=== PATIENT | male | born 1985 | race Caucasian/White ===

== ENCOUNTER 2019-01-24 21:52 | Emergency (ER) | payer SELFPAY ==
[2019-01-24] MEDS ORDERED: NORMAL SALINE 1000 ML 1,000 ML IV ONE (22:27)
[2019-01-24] MEDS ORDERED: LORAZEPAM INJ 2 MG/1 ML VIAL IV ONE ×2 (22:27→23:14)
[2019-01-24 23:44] LABS: ABSOLUTE LYMPHOCYTES (AUTO) 0.9 10^3/uL (0.5-4.7); ABSOLUTE MONOCYTES (AUTO) 1.2 10^3/uL (0.1-1.4); ABSOLUTE NEUT (AUTO) 12.6 10^3/uL (1.7-8.2); BASOPHILS % (AUTO) 0.3 % (0-2); EOSINOPHILS % (AUTO) 0.2 % (0-6); HEMATOCRIT 38.1 % (37.9-51.0); HEMOGLOBIN 12.7 g/dL (13.5-17.0); LYMPHOCYTES % (AUTO) 6.1 % (13-45); MEAN CORPUSCULAR HEMOGLOBIN 27.1 pg (27.0-33.4); MEAN CORPUSCULAR HGB CONC 33.2 g/dL (32.0-36.0); MEAN CORPUSCULAR VOLUME 82 fl (80-97); MONOCYTES % (AUTO) 8.3 % (3-13); PLATELET COUNT 255 10^3/uL (150-450); RED BLOOD COUNT 4.67 10^6/uL (4.35-5.55); RED CELL DISTRIBUTION WIDTH 14.4 % (11.5-14.0); SEGMENTED NEUTROPHILS % (AUTO) 85.1 % (42-78); TOTAL CELLS COUNTED % (AUTO) 100 %; WHITE BLOOD COUNT 14.8 10^3/uL (4.0-10.5)
[2019-01-25 00:01] LABS: BLOOD UREA NITROGEN 19 mg/dL (7-20); CALCIUM 8.8 mg/dL (8.4-10.2); CARBON DIOXIDE 25 mmol/L (22-30); CHLORIDE 102 mmol/L (98-107); GLUCOSE 91 mg/dL (75-110); POTASSIUM 3.7 mmol/L (3.6-5.0); SODIUM 138.2 mmol/L (137-145)
[2019-01-25 00:02] LABS: ALANINE AMINOTRANSFERASE 78 U/L (21-72); ALBUMIN 4.5 g/dL (3.5-5.0); ALKALINE PHOSPHATASE 86 U/L (38-126); ANION GAP 11 (5-19); ASPARTATE AMINO TRANSFERASE 50 U/L (17-59); BILIRUBIN,DIRECT 0.3 mg/dL (0.0-0.4); BILIRUBIN,TOTAL 1.1 mg/dL (0.2-1.3); TOTAL PROTEIN 7.7 g/dL (6.3-8.2)
[2019-01-25] MEDS ORDERED: RINGERS SOLUTION,LACTATED 1,000 ML IV ONE (05:24)
--- NOTE | 2019-01-25 05:33 | ER Document Report ---
ED General - General Chief Complaint: Drug Abuse Stated Complaint: PSYCH Time Seen by Provider: 01/24/19 22:14 Notes: Patient is a 34-year-old male who presents because of acting abnormal after doing a large amount of heroin and methamphetamines. Patient says that he is relapsed. He says he was clean for approximately 2 weeks and then relapsed today. He comes and thrashing about and unable to stay still and very fidgety. He denies depression. Denies suicidal ideations. He denies wanting to hurt himself or anybody else. TRAVEL OUTSIDE OF THE [place] IN LAST 30 DAYS: No - Related Data Allergies/Adverse Reactions: amoxicillin [Amoxicillin] Allergy (Severe, Verified 04/04/16 09:00) hives, n and v Penicillins Allergy (Verified 04/04/16 09:00) hives, n and v Past Medical History - Social History Smoking Status: Current Some Day Smoker Drug Abuse: Heroin, Marijuana, Methamphetamine, Prescription drugs Family History: Reviewed & Not Pertinent Patient has suicidal ideation: No Patient has homicidal ideation: No - Past Medical History Cardiac Medical History: Denies: Hx Coronary Artery Disease, Hx Heart Attack, Hx Hypertension Pulmonary Medical History: Denies: Hx Asthma, Hx Bronchitis, Hx COPD, Hx Pneumonia Neurological Medical History: Denies: Hx Cerebrovascular Accident, Hx Seizures Renal/ Medical History: Denies: Hx Peritoneal Dialysis Musculoskeletal Medical History: Denies Hx Arthritis, Reports Hx Musculoskeletal Trauma Traumatic Medical History: Reports: Hx Fractures Past Surgical History: Reports: Hx Orthopedic Surgery - Immunizations Immunizations up to date: No Hx Diphtheria, Pertussis, Tetanus Vaccination: Yes - -16- Review of Systems - Review of Systems Notes: My Normal Review Basic REVIEW OF SYSTEMS: CONSTITUTIONAL : Denies fever, chills, or sweats. Denies recent illness. EENT: Denies eye, ear, throat, or mouth pain or symptoms. Denies nasal or sinus congestion. CARDIOVASCULAR: Denies chest pain. RESPIRATORY: Denies cough, cold, or chest congestion. Denies shortness of breath, difficulty breathing, or wheezing. GASTROINTESTINAL: Denies abdominal pain. Denies nausea, vomiting, or diarrhea. MUSCULOSKELETAL: Denies neck or back pain or joint pain or swelling. SKIN: Denies rash or skin lesions. NEUROLOGICAL: Denies altered mental status or loss of consciousness. Denies headache. Unable to stay still. Constantly moving extremities. denies focal weakness. Denies problems with gait or speech. Denies sensory or motor loss. PSYCHIATRIC: Denies anxiety or stress or depression. ALL OTHER SYSTEMS REVIEWED AND NEGATIVE. Physical Exam - Vital signs Vitals: Temp Pulse Resp BP Pulse Ox 98.2 F 106 H 20 124/61 95 01/24/19 21:55 01/24/19 21:55 01/24/19 21:55 01/24/19 21:55 01/24/19 21:55 - Notes Notes: General Appearance: She is awake alert and cooperative. He is very fidgety mov ing around in the bed. He is having a difficult time staying still. He denies being in pain. Vitals: reviewed, See vital signs table. Head: no swelling or tenderness to the head Eyes: PERRL, EOMI, Conjuctiva clear Mouth: No decreasd moisture Neck: Supple, no neck tenderness, No thyromegaly Lungs: No wheezing, No rales, No rhonci, No accessory muscle use, good air exchange bilaterally. Heart: Normal rate, Regular rythm, No murmur, no rub Abdomen: Normal BS, soft, No rigidity, No abdominal tenderness, No guarding, no rebound, Extremities: strength 5/5 in all extremities, good pulses in all extremities, no swelling or tenderness in the extremities, no edema. Skin: warm, dry, appropriate color, no rash Neuro: speech clear, oriented x 3, normal affect, responds appropriately to questions. Cranial nerves II through XII are intact. Distal sensation intact. Patient is able to control his movements when he does focus on doing a specific task. Course - Re-evaluation Re-evalutation: 01/25/19 05:29 Reevaluation patient is in the room resting comfortably laying in the bed and sleeping. All signs remained stable. He is no longer thrashing about looks well. Avoid a second liter of fluids being that his renal function is little bit off. Avoid a CPK to make sure that he is not in rhabdo. 01/25/19 07:03 Is awake and alert and answers questions appropriately. He continues to deny any suicidal thoughts. He says he would like to speak with mental health about substance abuse and resources to help with substance abuse. I put a consult to them. I did inform patient that he did have mild acute kidney injury and that psych related to meth binge and dehydration. I have given 2 L IV fluids. Informed him that he needs to for drug use. I encouraged him to return to ER immediately if he has any depression, thoughts of suicide, uses drugs again, feels unwell, has decreased urination, or for any further concerns. I encouraged him to follow-up with resources I will be given to him by mental health. Patient agrees with plan will be discharged home after mental health evaluation. Dictation of this chart was performed using voice recognition software; therefore, there may be some unintended grammatical errors. - Vital Signs Vital signs: Temp Pulse Resp BP Pulse Ox 97.8 F 57 L 15 99/54 L 100 01/25/19 05:00 01/25/19 05:00 01/25/19 05:00 01/25/19 05:00 01/25/19 05:00 - Laboratory Result Diagrams: 01/24/19 23:35 01/24/19 23:35 Laboratory results interpreted by me: 01/24/19 01/24/19 01/24/19 23:35 23:35 23:35 WBC 14.8 H Hgb 12.7 L RDW 14.4 H Seg Neutrophils % 85.1 H Lymphocytes % 6.1 L Absolute Neutrophils 12.6 H Creatinine 2.07 H Est GFR ( Amer) 44 L Est GFR (Non-Af Amer) 37 L ALT 78 H Creatine Kinase 376 H - EKG Interpretation by Me Additional EKG results interpreted by me: 01/25/19 07:06 EKG is reviewed and interpreted by me. EKG shows sinus tachycardia with a rate of [address] segment elevation or depression. No ischemic T wave inversi ons. VT interval, QRS duration, QT intervals are within normal range. Old EKG for comparison is from October 22, 2018. Discharge - Discharge Clinical Impression: Substance abuse, Acute kidney injury Condition: Good Disposition: HOME, SELF-CARE Additional Instructions: Your blood work did not show any concerning findings other than you have a little bit decrease in your kidney function. This is usually reversible. I gave you 2 L of fluids to the IV which will usually help correct this. If you continue to use drugs you will likely continue to hurt and damage your kidneys. It is very important that you avoid drugs including methamphetamine, heroin, or any illegal street drugs. Continued use of these would likely lead to or permanent disability. Please follow-up with resources that were given to you by the mental health customs manager. Please have a low threshold to return to the ER if you relapse and use drugs again and feeling well, if you have depression, any thoughts of suicide, or if you have any concerns.
[2019-01-25 08:38] VITALS: BP 108/60
--- NOTE | 2019-01-28 13:02 | PSYCHOLOGICAL NOTE ---
Psych Note - Psych Note Date seen by psych provider: 01/25/19 Time seen by psych provider: 07:30 Psych Note: Reason for Consult: Detox Patient is a 34-year-old male who presents because of acting abnormal after doing a large amount of heroin and methamphetamines. Patient says that he is relapsed. Upon initial presentation to [facility] ED the patient was unable to sit still and unable to carry on organized linear conversation. Patient is currently alert and orientated to person, place, time and circumstance. Mood is euthymic with congruent affect. Patient denies suicidal homicidal ideation. No psychomotor agitation is noted. Delusions are absent behaviors congruent with an intact reality based presentation I organized and linear thought process. Eye contact was well-maintained. Conversational speech is within normal rate, tone and prosody. Intellectual abilities appear to be within the average range. Attention and concentration are currently good. Insight, judgment, impulse control are fair. Polysubstance abuse No medication augmentations at this time Impression/plan: Patient is cleared from acute psychiatric services. Patient is no longer under the influence. He is able to engage in an organized, linear and logical conversations. He denies any concerns with depression or thoughts of wanting to harm himself or others. He declined assistance in detox, reporting he has all the information and does not need addition assistance. Patient's mood is euthymic with congruent affect. Patient was provided local resource list of area providers including detox facilities and mobile crisis contact information in case he changes his mind. Dr. Rao was consulted and care management of this patient; attending physicians in agreement with recommendations and disposition.
== END 2019-01-25 08:38 | disposition home or self-care (01) ==
LOC: ER 21:52
DX: F15.10 Other stimulant abuse, uncomplicated (principal); F11.10 Opioid abuse, uncomplicated; F12.10 Cannabis abuse, uncomplicated; N17.9 Acute kidney failure, unspecified; Z88.1 Allergy status to other antibiotic agents; Z88.0 Allergy status to penicillin; F17.200 Nicotine dependence, unspecified, uncomplicated
CPT/HCPCS: 99284; 36415; 82962; 82550; 85025; 80053; J2060; J7030; J7120

== ENCOUNTER 2019-08-04 12:03 | Inpatient (IN) | payer SELFPAY ==
[2019-08-04] MEDS ORDERED: NORMAL SALINE 1000 ML 1,000 ML IV ONE (12:45)
[2019-08-04 13:46] LABS: HEMATOCRIT 41.2 % (37.9-51.0); HEMOGLOBIN 13.6 g/dL (13.5-17.0); MEAN CORPUSCULAR HEMOGLOBIN 27.8 pg (27.0-33.4); MEAN CORPUSCULAR HGB CONC 33.1 g/dL (32.0-36.0); MEAN CORPUSCULAR VOLUME 84 fl (80-97); PLATELET COUNT 278 10^3/uL (150-450); RED CELL DISTRIBUTION WIDTH 13.4 % (11.5-14.0); WHITE BLOOD COUNT 21.9 10^3/uL (4.0-10.5)
--- NOTE | 2019-08-04 13:47 | RADIOLOGY REPORT (SQ) ---
EXAM DESCRIPTION: CHEST SINGLE VIEW COMPLETED DATE/TIME: 08/04/2019 1:09 pm REASON FOR STUDY: Overdose, rhonchi COMPARISON: None. NUMBER OF VIEWS: One view. TECHNIQUE: Single frontal radiographic view of the chest acquired. LIMITATIONS: None. FINDINGS: LUNGS AND PLEURA: No opacities, masses or pneumothorax. No pleural effusion. MEDIASTINUM AND HILAR STRUCTURES: No masses. Contour normal. HEART AND VASCULAR STRUCTURES: Heart normal in size. Normal vasculature. BONES: No acute findings. HARDWARE: None in the chest. OTHER: No other significant finding. IMPRESSION: NO SIGNIFICANT RADIOGRAPHIC FINDING IN THE CHEST. TECHNICAL DOCUMENTATION: JOB ID: [id number] [employer]- All Rights Reserved Reading location - IP/workstation name: [email or web address]
[2019-08-04 14:02] LABS: ALBUMIN 5.2 g/dL (3.5-5.0); ALKALINE PHOSPHATASE 91 U/L (38-126); ANION GAP 16 (5-19); ASPARTATE AMINO TRANSFERASE 62 U/L (17-59); BILIRUBIN,DIRECT 0.4 mg/dL (0.0-0.4); BILIRUBIN,TOTAL 0.9 mg/dL (0.2-1.3); BLOOD UREA NITROGEN 26 mg/dL (7-20); CALCIUM 10.5 mg/dL (8.4-10.2); CARBON DIOXIDE 28 mmol/L (22-30); CHLORIDE 102 mmol/L (98-107); CREATINE KINASE 728 U/L (55-170); POTASSIUM 4.1 mmol/L (3.6-5.0); TOTAL PROTEIN 8.9 g/dL (6.3-8.2)
[2019-08-04 14:04] LABS: ACETAMINOPHEN < 10 ug/mL (10-30); ALCOHOL < 10 mg/dL (NONE DETECTED); SALICYLATE < 1.0 mg/dL (2.0-20.0)
[2019-08-04 14:10] LABS: GLUCOSE 33 mg/dL (75-110)
--- NOTE | 2019-08-04 14:10 | ER Document Report ---
Entered by ASIM SNOWDEN SCRIBE 08/04/19 1229 Acting as scribe for:CLIFF LARKIN MD ED Blood Pressure Problem - General Chief Complaint: Blood Pressure Problem Stated Complaint: POSSIBLE OVERDOSE Time Seen by Provider: 08/04/19 12:27 Mode of Arrival: Ambulatory Information source: Law Enforcement Notes: This 34 year old male patient brought in by the [facility]'s Department presents to the ED today with complaints of a blood pressure problem. [facility] states that they received x5 calls about the patient rolling around in the middle of the road. [facility] states that when he arrived on the scene, the patient was on the side of the road, alert with drug paraphernalia scattered around him. [facility] notes that the patient didn't know how he got to his location and stated that he "got lost because he didn't have a compass". [facility] states that the patient had a possible overdose on heroin that was laced and he brought him to the [facility]'s department where the nurse there said that the patient had to be evaluated by a physician due to high blood pressure. Patient was diaphoretic, sleeping, and restrained by handcuffs. TRAVEL OUTSIDE OF THE [place] IN LAST 30 DAYS: No - Related Data Allergies/Adverse Reactions: amoxicillin [Amoxicillin] Allergy (Severe, Verified 04/04/16 09:00) hives, n and v Penicillins Allergy (Verified 04/04/16 09:00) hives, n and v Past Medical History - Social History Smoking Status: Never Smoker Cigarette use (# per day): No Chew tobacco use (# tins/day): No Smoking Education Provided: No Drug Abuse: Heroin, Methamphetamine Family History: Reviewed & Not Pertinent Patient has suicidal ideation: No Patient has homicidal ideation: No Musculoskeletal Medical History: Reports Hx Musculoskeletal Trauma Traumatic Medical History: Reports: Hx Fractures Past Surgical History: Reports: Hx Orthopedic Surgery - Immunizations Immunizations up to date: No Hx Diphtheria, Pertussis, Tetanus Vaccination: Yes - 02-15-13 Review of Systems - Review of Systems Constitutional: See HPI, Diaphoresis, Other - Heroin overdose EENT: No symptoms reported Cardiovascular: No symptoms reported Respiratory: No symptoms reported Gastrointestinal: No symptoms reported Genitourinary: No symptoms reported Male Genitourinary: No symptoms reported Musculoskeletal: No symptoms reported Skin: No symptoms reported Hematologic/Lymphatic: No symptoms reported Neurological/Psychological: No symptoms reported -: Yes All other systems reviewed and negative Physical Exam - Vital signs Vitals: Temp Pulse Resp BP Pulse Ox 99.2 F 118 H 20 135/52 H 92 08/04/19 12:11 08/04/19 12:11 08/04/19 12:11 08/04/19 12:11 08/04/19 12:11 Interpretation: Tachycardic - General General appearance: Combative - Intermittently somnolent, then combative In distress: Mild - HEENT Head: Normocephalic, Atraumatic Eyes: Other - Pupils are nearly pinpoint Conjunctiva: Normal Extraocular movements intact: Yes Pupils: Pinpoint - Nearly pinpoint, sluggishly reactive Ears: Normal Mucous membranes: Dry Pharynx: Normal Neck: Normal - Respiratory Respiratory status: Tachypnea Breath sounds: Normal - Cardiovascular Rhythm: Regular, Tachycardia Heart sounds: Normal auscultation Murmur: No - Abdominal Inspection: Normal Distension: No distension Tenderness: Nontender - Back Back: Other - Extremities General upper extremity: Other - Restrained by handcuff on left wrist. Needle tracks left antecubital area. Does not appear infected. General lower extremity: Normal inspection - Neurological Neuro grossly intact: Yes - Except for mental status - Psychological Associated symptoms: Agitated, Combative, Confused - Skin Skin Temperature: Cool Skin Moisture: Diaphoretic - Extremely diaphoretic, with water pooling up on his chest. Skin Color: Normal Course - Re-evaluation Re-evalutation: 08/04/19 16:30 At this time the patient is more arousable. When stimulated he will sit up and look about. His pupils are now about 2 mm, previously they were almost pinpoint. He does remain diaphoretic, but less so than when he first came in. - Vital Signs Vital signs: Temp Pulse Resp BP Pulse Ox 99.2 F 118 H 28 H 135/64 H 95 08/04/19 12:11 08/04/19 12:11 08/04/19 15:01 08/04/19 15:01 08/04/19 15:01 - Laboratory Result Diagrams: 08/04/19 13:25 08/04/19 13:25 Laboratory results interpreted by me: 08/04/19 08/04/19 08/04/19 13:25 13:25 14:53 WBC 21.9 H Seg Neuts % (Manual) 81 H Lymphocytes % (Manual) 3 L Abs Neuts (Manual) 18.8 H Abs Monocytes (Manual) 2.4 H Sodium 146.0 H BUN 26 H Creatinine 1.71 H Est GFR ( Amer) 55 L Est GFR (MDRD) Non-Af 46 L Glucose 33 L* POC Glucose 205 H Calcium 10.5 H AST 62 H Creatine Kinase 728 H Total Protein 8.9 H Albumin 5.2 H Urine Protein Urine Ketones Salicylates < 1.0 L Acetaminophen < 10 L 08/04/19 15:00 WBC Seg Neuts % (Manual) Lymphocytes % (Manual) Abs Neuts (Manual) Abs Monocytes (Manual) Sodium BUN Creatinine Est GFR ( Amer) Est GFR (MDRD) Non-Af Glucose POC Glucose Calcium AST Creatine Kinase Total Protein Albumin Urine Protein 100 H Urine Ketones TRACE H Salicylates Acetaminophen - Diagnostic Test Radiology reviewed: Image reviewed, Reports reviewed - Chest x-ray does not show acute radiographic changes. - EKG Interpretation by [place] EKG shows normal: Sinus rhythm, [place], Intervals, QRS Complexes, ST-T Waves Rate: Tachycardia - 108 [place]/QRS: Right axis deviation P Waves: LAE When compared to previous EKG there are: No significant change - Transfer of Care Care transferred to following provider: Dr. Campo Notes: 08/04/19 16:17 Patient is on IVC hold at this time. He has medication orders for as needed agitation treatment. He will be reevaluated by the psychology department in the morning. Repeat CBC, Chem-12, troponin, CK along with previously overlooked blood cultures and lactic acid will be obtained at this time. If the abnormal values noted previously are not trending downward, then his lab work should be repeated again in the morning. The deputy coroner investigator indicated that he was going to take out warrants for the patient's arrest and take him into custody when he is released. Discharge - Discharge Clinical Impression: Intravenous drug abuse, Methamphetamine abuse, Heroin abuse, Tachycardia Rhabdomyolysis Qualifiers: Rhabdomyolysis type: non-traumatic Qualified Code(s): M62.82 - Rhabdomyolysis Leukocytosis Qualifiers: Leukocytosis type: bandemia Qualified Code(s): D72.825 - Bandemia Condition: Stable Disposition: PSYCH HOSP/UNIT Scribe Attestation: 08/04/19 13:57 I personally performed the services described in the documentation, reviewed and edited the documentation which was dictated to the scribe in my presence, and it accurately records my words and actions. I personally performed the services described in the documentation, reviewed and edited the documentation which was dictated to the scribe in my presence, and it accurately records my words and actions.
[2019-08-04] MEDS ORDERED: DEXTROSE 5%-LACTATED RINGERS 1,000 ML IV ONE ×2 (14:11→15:01)
[2019-08-04 14:21] LABS: ABSOLUTE LYMPHOCYTES# (MANUAL) 0.7 10^3/uL (0.5-4.7); ABSOLUTE MONOCYTES # (MANUAL) 2.4 10^3/uL (0.1-1.4); BAND NEUTROPHILS % (MANUAL) 5 % (3-5); BASOPHILS % (MANUAL) 0 % (0-2); EOSINOPHILS % (MANUAL) 0 % (0-6); LYMPHOCYTES % (MANUAL) 3 % (13-45); MONOCYTES % (MANUAL) 11 % (3-13); SEGMENTED NEUTROPHILS % (MAN) 81 % (42-78); TOTAL CELLS COUNTED 100
[2019-08-04 14:22] LABS: PLATELET COMMENT ADEQUATE; RBC MORPHOLOGY COMMENT NORMO-CYTIC/CHROMIC; TOXIC GRANULATION SLIGHT; TOXIC VACUOLATION PRESENT
[2019-08-04] MEDS ORDERED: CHLORPROMAZINE HCL INJ 25 MG/1 ML AMPULE IM PRN (14:57)
[2019-08-04] MEDS ORDERED: BENZTROPINE MESYLATE INJ 2 MG/2 ML AMPULE IM SCH (14:59)
[2019-08-04 15:22] LABS: APPEARANCE,URINE SLIGHTLY-CLOUDY; BILIRUBIN,URINE NEGATIVE (NEGATIVE); COLOR,URINE YELLOW; GLUCOSE, URINE NEGATIVE (NEGATIVE); KETONES,URINE TRACE mg/dL (NEGATIVE); LEUKOCYTE ESTERASE,URINE NEGATIVE (NEGATIVE); NITRITE,URINE NEGATIVE (NEGATIVE); PROTEIN,URINE 100 mg/dL (NEGATIVE); URINE SPECIFIC GRAVITY 1.017; UROBILINOGEN,URINE NEGATIVE mg/dL (<2.0)
[2019-08-04 15:37] LABS: URINE BARBITURATES SCREEN NEGATIVE; URINE BENZODIAZEPINES SCREEN NEGATIVE; URINE COCAINE SCREEN NEGATIVE; URINE MARIJUANA (THC) SCREEN NEGATIVE; URINE METHADONE SCREEN NEGATIVE; URINE PHENCYCLIDINE SCREEN NEGATIVE
--- NOTE | 2019-08-04 16:22 | PSYCHOLOGICAL NOTE ---
Psych Note - Psych Note Date seen by psych provider: 08/04/19 Time seen by psych provider: 14:30 Psych Note: Patient presents to the ED via [facility] with a CC of blood pressure issue. Patient was arrested after being found rolling around in the middle of the road. [facility] and the nurse refused him due to high blood pressure and was brought the the ED. Patient states he used heroin this morning and believes it may have contained another substance. Patient is currently in restrats; He is unbathed and perfusly sweating. He reports he used heroin yesterday morning. He reports he didn't use meth on purpose. chart review conducted: patient was seen by this clinician and department on 01/25/2019. He was seen for abnormal behaviour. He disclosed he used large amounts of heroin and methamphetamines. Patient reported that he relapsed after being clean for approximately 2 weeks. Medication recommendations per [facility]'s contracted psychiatrist Dr. Tino GAN are follows Thorazine 50mg every 6 hours as needed Cogentin 1mg daily as needed Impression/Plan: Patient is recommended for IVC petition for overnight observation due to altered mental status. At this time, it appears it is substance induced AMS. Medication recommendations have been provided; patient will be re-evaluated. Dr. Rao was consulted on the care and management of this patient; attending physician is in agreement with recommendations and disposition.
[2019-08-04 17:38] LABS: HEMATOCRIT 33.9 % (37.9-51.0); MEAN CORPUSCULAR HGB CONC 33.3 g/dL (32.0-36.0); MEAN CORPUSCULAR VOLUME 84 fl (80-97); PLATELET COUNT 213 10^3/uL (150-450); RED BLOOD COUNT 4.04 10^6/uL (4.35-5.55); RED CELL DISTRIBUTION WIDTH 13.5 % (11.5-14.0); WHITE BLOOD COUNT 11.9 10^3/uL (4.0-10.5)
[2019-08-04 17:46] LABS: ALBUMIN 3.7 g/dL (3.5-5.0); ALKALINE PHOSPHATASE 56 U/L (38-126); ANION GAP 9 (5-19); ASPARTATE AMINO TRANSFERASE 73 U/L (17-59); BILIRUBIN,DIRECT 0.2 mg/dL (0.0-0.4); BILIRUBIN,TOTAL 0.6 mg/dL (0.2-1.3); BLOOD UREA NITROGEN 25 mg/dL (7-20); CALCIUM 8.8 mg/dL (8.4-10.2); CARBON DIOXIDE 26 mmol/L (22-30); CHLORIDE 105 mmol/L (98-107); GLUCOSE 108 mg/dL (75-110); TOTAL PROTEIN 6.5 g/dL (6.3-8.2)
[2019-08-04 17:53] LABS: CREATINE KINASE 2326 U/L (55-170)
[2019-08-04 18:11] LABS: HEMOGLOBIN 11.3 g/dL (13.5-17.0)
[2019-08-04] MEDS ORDERED: NORMAL SALINE 1000 ML 1,000 ML IV PRN (18:44)
[2019-08-04 18:51] LABS: ABSOLUTE LYMPHOCYTES# (MANUAL) 0.5 10^3/uL (0.5-4.7); ABSOLUTE MONOCYTES # (MANUAL) 0.2 10^3/uL (0.1-1.4); BAND NEUTROPHILS % (MANUAL) 2 % (3-5); BASOPHILS % (MANUAL) 0 % (0-2); EOSINOPHILS % (MANUAL) 0 % (0-6); LYMPHOCYTES % (MANUAL) 4 % (13-45); MONOCYTES % (MANUAL) 2 % (3-13); RBC MORPHOLOGY COMMENT NORMO-CYTIC/CHROMIC; SEGMENTED NEUTROPHILS % (MAN) 92 % (42-78); TOTAL CELLS COUNTED 100
[2019-08-04 18:52] LABS: PLATELET COMMENT ADEQUATE
--- NOTE | 2019-08-04 19:16 | RADIOLOGY REPORT (SQ) ---
EXAM DESCRIPTION: CHEST SINGLE VIEW COMPLETED DATE/TIME: 08/04/2019 7:06 pm REASON FOR STUDY: Short of breath COMPARISON: 08/04/2019 EXAM PARAMETERS: NUMBER OF VIEWS: One view. TECHNIQUE: Single frontal radiographic view of the chest acquired. RADIATION DOSE: NA LIMITATIONS: None. FINDINGS: LUNGS AND PLEURA: No opacities, masses or pneumothorax. No pleural effusion. MEDIASTINUM AND HILAR STRUCTURES: No masses. Contour normal. HEART AND VASCULAR STRUCTURES: Heart normal in size. Normal vasculature. BONES: No acute findings. HARDWARE: None in the chest. OTHER: No other significant finding. IMPRESSION: NO ACUTE RADIOGRAPHIC FINDING IN THE CHEST. TECHNICAL DOCUMENTATION: JOB ID: [id number] [employer]- All Rights Reserved Reading location - IP/workstation name: [email or web address]
--- NOTE | 2019-08-04 19:26 | EKG REPORT ---
SEVERITY:- ABNORMAL ECG - ECTOPIC ATRIAL RHYTHM SHORT NM INTERVAL, ACCELERATED AV CONDUCTION NONSPECIFIC INTRAVENTRICULAR CONDUCTION DELAY : Confirmed by: Eliot Dukes MD 04-Aug-2019 19:25:52
--- NOTE | 2019-08-04 19:28 | EKG REPORT ---
SEVERITY:- BORDERLINE ECG - SINUS TACHYCARDIA PROBABLE LEFT ATRIAL ABNORMALITY BORDERLINE RIGHT AXIS DEVIATION : Confirmed by: Eliot Dukes MD 04-Aug-2019 19:26:17
[2019-08-04] MEDS ORDERED: ACETAMINOPHEN 325 MG TABLET PO PRN (19:43)
[2019-08-04] MEDS ORDERED: IPRATROPIUM/ALBUTEROL 0.5-2.5 MG/3 ML AMPUL NEB PRN (19:43)
[2019-08-04] MEDS ORDERED: MAG HYDROX/AL HYDROX/SIMETH SUSP 30 ML UDCUP PO PRN (19:43)
[2019-08-04] MEDS ORDERED: NORMAL SALINE 1000 ML 1,000 ML IV SCH (19:45)
[2019-08-04] MEDS: NORMAL SALINE 1000 ML 1,000 ML IV PRN (21:40)
[2019-08-04] MEDS: HEPARIN SOD (PORCINE) 5,000 UNIT/ML 1 ML VIAL SUBCUT SCH (23:56)
[2019-08-05] MEDS: NORMAL SALINE 1000 ML 1,000 ML IV PRN ×2 (00:09→21:29)
[2019-08-05] MEDS ORDERED: INFLUENZA QUAD (6MOS+) 2019-20 VAC 0.5 ML SYR IM ONE (01:19)
[2019-08-05] MEDS: BENZTROPINE MESYLATE 1 MG TABLET PO SCH ×3 (04:07→21:24)
[2019-08-05] MEDS: ARIPIPRAZOLE 2 MG TABLET PO SCH ×2 (04:07→21:24)
--- NOTE | 2019-08-05 04:51 | PDOC H&P ---
History of Present Illness Admission Date/PCP: 08/04/19 19:48 Patient complains of: Altered mental status History of Present Illness: CESAR LANE is a 34 year old male with past medical history of methamphetamine and heroin IV drug use. He presents in custody of [place] [employer] after found confused, disheveled and wandering around in the burgess. In the department he is hyperkinetic with mild clonus, admits to cocaine and methamphetamine. Patient is sedated and unable to provide any history. Labs reveal rhabdomyolysis. He is treated with Thorazine and referred to the hospitalist for admission. Past Medical History Cardiac Medical History: Denies: Coronary Artery Disease, Myocardial Infarction, Hypertension Pulmonary Medical History: Denies: Asthma, Bronchitis, Chronic Obstructive Pulmonary Disease (COPD), Pneumonia EENT Medical History: Reports: None Neurological Medical History: Reports: None Denies: Seizures Endocrine Medical History: Reports: None Renal/ Medical History: Reports: None Malignancy Medical History: Reports: None GI Medical History: Reports: None Musculoskeltal Medical History: Denies: Arthritis Skin Medical History: Reports: None Psychiatric Medical History: Reports: Substance Abuse Hematology: Denies: Anemia Past Surgical History Past Surgical History: Reports: Orthopedic Surgery Social History Information Source: [facility] Records Lives with: Homeless Smoking Status: Never Smoker Hx Recreational Drug Use: Yes Drugs: Cocaine, Heroin - Advance Directive Resuscitation Status: Full Code Family History Family History: Reviewed & Not Pertinent, Other - Unobtainable Parental Family History Reviewed: No - Unobtainable Children Family History Reviewed: No - Unobtainable Sibling(s) Family History Reviewed.: No Medication/Allergy Home Medications: No Home Medications 08/04/19 Allergies/Adverse Reactions: amoxicillin [Amoxicillin] Allergy (Severe, Verified 04/04/16 09:00) hives, n and v Penicillins Allergy (Verified 04/04/16 09:00) hives, n and v Review of Systems ROS unobtainable: Due to mental status Physical Exam Vital Signs: Temp Pulse Resp BP Pulse Ox 97.5 F 51 L 14 101/63 100 08/05/19 01:20 08/05/19 01:20 08/05/19 01:20 08/05/19 01:20 08/05/19 01:20 Intake & Output 08/03/19 08/04/19 08/05/19 11:59 11:59 11:59 Intake Total 4000 Balance 4000 Weight 82.9 kg General appearance: PRESENT: disheveled, mild distress, well-developed, well- nourished. ABSENT: cooperative Head exam: PRESENT: atraumatic, normocephalic Eye exam: PRESENT: conjunctiva pink, EOMI, PERRLA. ABSENT: scleral icterus Ear exam: PRESENT: normal external ear exam Mouth exam: PRESENT: moist, tongue midline Neck exam: ABSENT: carotid bruit, JVD, lymphadenopathy, thyromegaly Respiratory exam: PRESENT: clear to auscultation adrianna. ABSENT: rales, rhonchi, wheezes Cardiovascular exam: PRESENT: RRR. ABSENT: diastolic murmur, rubs, systolic murmur Pulses: PRESENT: normal dorsalis pedis pul Vascular exam: PRESENT: normal capillary refill GI/Abdominal exam: PRESENT: normal bowel sounds, soft. ABSENT: distended, guarding, mass, organolmegaly, rebound, tenderness Rectal exam: PRESENT: deferred Extremities exam: PRESENT: full ROM, other - Left antecubitus track rodriguez. ABSENT: calf tenderness, clubbing, pedal edema Neurological exam: PRESENT: altered, CN II-XII grossly intact. ABSENT: awake, oriented to person, oriented to place, oriented to time, oriented to situation, reflexes normal Psychiatric exam: PRESENT: flat affect, unusual affect, other - Sedated Skin exam: PRESENT: dry, intact, warm. ABSENT: cyanosis, rash Results Laboratory Results: 08/04/19 17:07 08/04/19 17:07 08/04/19 08/04/19 08/04/19 13:25 13:25 15:00 WBC 21.9 H RBC 4.90 Hgb 13.6 Hct 41.2 MCV 84 MCH 27.8 MCHC 33.1 RDW 13.4 Plt Count 278 Seg Neutrophils % Not Reportable Sodium 146.0 H Potassium 4.1 Chloride 102 Carbon Dioxide 28 Anion Gap 16 BUN 26 H Creatinine 1.71 H Est GFR ( Amer) 55 L Glucose 33 L* Lactic Acid Calcium 10.5 H Magnesium 2.3 Total Bilirubin 0.9 AST 62 H Alkaline Phosphatase 91 Total Protein 8.9 H Albumin 5.2 H Urine Color YELLOW Urine Appearance SLIGHTLY-CLOUDY Urine pH 6.0 Ur Specific [place] 1.017 Urine Protein 100 H Urine Glucose (UA) NEGATIVE Urine Ketones TRACE H Urine Blood NEGATIVE Urine Nitrite NEGATIVE Ur Leukocyte Esterase NEGATIVE Urine WBC (Auto) 3 Urine RBC (Auto) 1 08/04/19 08/04/19 08/04/19 17:07 17:07 17:07 WBC 11.9 H RBC 4.04 L Hgb 11.3 L D Hct 33.9 L MCV 84 MCH 28.0 MCHC 33.3 RDW 13.5 Plt Count 213 Seg Neutrophils % Not Reportable Sodium 139.8 Potassium 4.0 Chloride 105 Carbon Dioxide 26 Anion Gap 9 BUN 25 H Creatinine 1.22 Est GFR ( Amer) > 60 Glucose 108 Lactic Acid 0.7 Calcium 8.8 Magnesium Total Bilirubin 0.6 AST 73 H Alkaline Phosphatase 56 Total Protein 6.5 Albumin 3.7 Urine Color Urine Appearance Urine pH Ur Specific [place] Urine Protein Urine Glucose (UA) Urine Ketones Urine Blood Urine Nitrite Ur Leukocyte Esterase Urine WBC (Auto) Urine RBC (Auto) 08/04/19 08/04/19 08/04/19 13:25 13:25 17:07 Creatine Kinase 728 H 2326 H Troponin I 0.024 08/04/19 17:07 Creatine Kinase Troponin I 0.037 Impressions: Chest X-Ray 08/04/19 18:41 IMPRESSION: NO ACUTE RADIOGRAPHIC FINDING IN THE CHEST. Assessment and Plan - Diagnosis (1) Intravenous drug abuse Is this a current diagnosis for this admission?: Yes Plan: Supportive care, discharge planning consult for rehab (2) Rhabdomyolysis Qualifiers: Rhabdomyolysis type: non-traumatic Qualified Code(s): M62.82 - Rha bdomyolysis Is this a current diagnosis for this admission?: Yes Plan: Likely secondary to methamphetamine and cocaine. IV fluid challenge, follow-up serial CK and chemistry - Time Time Spent with patient: 25-34 minutes - Inpatient Certification Medical Necessity: Need Close Monitoring Due to Risk of Patient Decompensation
[2019-08-05] MEDS: HEPARIN SOD (PORCINE) 5,000 UNIT/ML 1 ML VIAL SUBCUT SCH ×3 (05:02→21:23)
[2019-08-05 05:41] LABS: ABSOLUTE EOSINOPHILS # (AUTO) 0.2 10^3/uL (0.0-0.6); ABSOLUTE MONOCYTES (AUTO) 1.3 10^3/uL (0.1-1.4); ABSOLUTE NEUT (AUTO) 5.2 10^3/uL (1.7-8.2); BASOPHILS % (AUTO) 0.4 % (0-2); EOSINOPHILS % (AUTO) 2.7 % (0-6); HEMATOCRIT 34.5 % (37.9-51.0); HEMOGLOBIN 11.6 g/dL (13.5-17.0); LYMPHOCYTES % (AUTO) 23.1 % (13-45); MEAN CORPUSCULAR HEMOGLOBIN 28.5 pg (27.0-33.4); MEAN CORPUSCULAR HGB CONC 33.7 g/dL (32.0-36.0); MEAN CORPUSCULAR VOLUME 84 fl (80-97); MONOCYTES % (AUTO) 14.5 % (3-13); PLATELET COUNT 180 10^3/uL (150-450); RED BLOOD COUNT 4.08 10^6/uL (4.35-5.55); RED CELL DISTRIBUTION WIDTH 13.9 % (11.5-14.0); SEGMENTED NEUTROPHILS % (AUTO) 59.3 % (42-78); TOTAL CELLS COUNTED % (AUTO) 100 %; WHITE BLOOD COUNT 8.7 10^3/uL (4.0-10.5)
[2019-08-05 05:50] LABS: ANION GAP 9 (5-19); BLOOD UREA NITROGEN 21 mg/dL (7-20); CALCIUM 8.6 mg/dL (8.4-10.2); CARBON DIOXIDE 22 mmol/L (22-30); CHLORIDE 107 mmol/L (98-107); POTASSIUM 4.1 mmol/L (3.6-5.0)
[2019-08-05 05:57] LABS: GLUCOSE 63 mg/dL (75-110)
--- NOTE | 2019-08-05 15:12 | PSYCHOLOGICAL NOTE ---
Psych Note - Psych Note Date seen by psych provider: 08/05/19 Time seen by psych provider: 14:25 Psych Note: Patient is a 34 year old male who presented to the ED via [facility]. Patient was subsequently admitted into the hospital after concerns for polysubstance use. Patient was resting in the bed when clinician entered the room. Initially patient stated he would agree to substance abuse treatment when medically cleared. Patient began to ask questions about length of stay, etc and disclosed he provides care for his mother. Patient no longer seemed interested in substance abuse treatment. Patient stated he has been using heroin and meth for "a couple years." Patient was guarded during the evaluation. Patient denies suicidal and homicidal ideations. Medication recommendations per [facility]'s contracted psychiatrist Dr. Tino GAN are follows Thorazine 50mg every 6 hours as needed Cogentin 1mg daily as needed Impression/Plan: Patient is recommended for rescind of IVC and is cleared from acute psychiatric services. Medication recommendations have been provided. At this time, it appears patient's presentation was likely substance induced. Patient was provided with a substance abuse treatment resource list. Dr. Rao was consulted on the care and management of this patient; attending physician is in agreement with recommendations and disposition.
[2019-08-05] MEDS ORDERED: NORMAL SALINE 1000 ML 1,000 ML IV ONE (17:12)
--- NOTE | 2019-08-05 17:16 | PDOC PROGRESS REPORT ---
Subjective Progress Note for:: 08/05/19 Subjective:: Patient is oriented today. He states that he used heroin yesterday morning but may have had something laced in it. Denies cocaine amphetamine amphetamines. States that he is not yet ready to make a decision about whether he wants to pursue rehab. Reason For Visit: RHABDO IVDU HEROIN AND METHAPET Physical Exam Vital Signs: Temp Pulse Resp BP Pulse Ox 97.7 F 65 17 127/68 H 100 08/05/19 15:00 08/05/19 15:00 08/05/19 15:00 08/05/19 15:00 08/05/19 15:00 Intake & Output 08/04/19 08/05/19 08/06/19 06:59 06:59 06:59 Intake Total 5000 Output Total 0 Balance 5000 Weight 82.9 kg General appearance: PRESENT: no acute distress, cooperative Neck exam: ABSENT: JVD Respiratory exam: PRESENT: clear to auscultation adrianna Cardiovascular exam: PRESENT: +S1, +S2 Neurological exam: PRESENT: alert, awake, oriented to person, oriented to place, oriented to time, oriented to situation Psychiatric exam: ABSENT: homicidal ideation, suicidal ideation Results Laboratory Results: 08/05/19 04:46 08/05/19 04:46 08/04/19 08/04/19 08/04/19 17:07 17:07 17:07 WBC 11.9 H RBC 4.04 L Hgb 11.3 L D Hct 33.9 L MCV 84 MCH 28.0 MCHC 33.3 RDW 13.5 Plt Count 213 Seg Neutrophils % Not Reportable Sodium 139.8 Potassium 4.0 Chloride 105 Carbon Dioxide 26 Anion Gap 9 BUN 25 H Creatinine 1.22 Est GFR ( Amer) > 60 Glucose 108 Lactic Acid 0.7 Calcium 8.8 Total Bilirubin 0.6 AST 73 H Alkaline Phosphatase 56 Total Protein 6.5 Albumin 3.7 08/05/19 08/05/19 04:46 04:46 WBC 8.7 RBC 4.08 L Hgb 11.6 L Hct 34.5 L MCV 84 MCH 28.5 MCHC 33.7 RDW 13.9 Plt Count 180 Seg Neutrophils % 59.3 Sodium 138.4 Potassium 4.1 Chloride 107 Carbon Dioxide 22 Anion Gap 9 BUN 21 H Creatinine 0.81 Est GFR ( Amer) > 60 Glucose 63 L Lactic Acid Calcium 8.6 Total Bilirubin AST Alkaline Phosphatase Total Protein Albumin 08/04/19 08/04/19 08/04/19 13:25 13:25 17:07 Creatine Kinase 728 H 2326 H Troponin I 0.024 08/04/19 08/05/19 17:07 14:58 Creatine Kinase 5711 H Troponin I 0.037 Impressions: Chest X-Ray 08/04/19 18:41 IMPRESSION: NO ACUTE RADIOGRAPHIC FINDING IN THE CHEST. Assessment and Plan - Diagnosis (1) Rhabdomyolysis Qualifiers: Rhabdomyolysis type: non-traumatic Qualified Code(s): M62.82 - Rhabdomyolys is Is this a current diagnosis for this admission?: Yes Plan: Secondary to drug use IV fluids Trend creatinine kinase (2) Intravenous drug abuse Is this a current diagnosis for this admission?: Yes Plan: Daily heroin use. Supportive care Patient is not ready to make a decision about posterior rehab at this time. He has been given brochures for outpatient rehabilitation facilities if he gets interested. No longer acutely intoxicated and is fully oriented at this point. IVC has been rescinded by psychiatry. - Time Time Spent with patient: 15-24 minutes
[2019-08-06] MEDS: NORMAL SALINE 1000 ML 1,000 ML IV PRN ×5 (02:07→21:38)
[2019-08-06] MEDS: HEPARIN SOD (PORCINE) 5,000 UNIT/ML 1 ML VIAL SUBCUT SCH ×3 (05:41→21:41)
[2019-08-06 06:54] LABS: ANION GAP 7 (5-19); BLOOD UREA NITROGEN 12 mg/dL (7-20); CALCIUM 8.4 mg/dL (8.4-10.2); CARBON DIOXIDE 27 mmol/L (22-30); CHLORIDE 107 mmol/L (98-107); GLUCOSE 87 mg/dL (75-110); POTASSIUM 4.2 mmol/L (3.6-5.0)
[2019-08-06 07:17] LABS: CREATINE KINASE 5935 U/L (55-170)
[2019-08-06] MEDS ORDERED: NORMAL SALINE 1000 ML 1,000 ML IV ONE (08:33)
[2019-08-06] MEDS: BENZTROPINE MESYLATE 1 MG TABLET PO SCH ×2 (09:12→21:39)
--- NOTE | 2019-08-06 11:58 | PDOC PROGRESS REPORT ---
Subjective Progress Note for:: 08/06/19 Subjective:: Patient complains of generalized body aches today. Also complains of sweating. Has some anxiety. Reason For Visit: RHABDO IVDU HEROIN AND METHAPET Physical Exam Vital Signs: Temp Pulse Resp BP Pulse Ox 98.1 F 64 19 162/82 H 100 08/06/19 07:00 08/06/19 07:00 08/06/19 07:00 08/06/19 07:00 08/06/19 07:00 Intake & Output 08/05/19 08/06/19 08/07/19 06:59 06:59 06:59 Intake Total 5000 5052 1729 Output Total 0 4975 Balance 5000 77 1729 Weight 82.9 kg 83.6 kg General appearance: PRESENT: no acute distress, cooperative Neck exam: ABSENT: JVD Respiratory exam: PRESENT: clear to auscultation adrianna, symmetrical, unlabored. ABSENT: tachypnea, wheezes Cardiovascular exam: PRESENT: RRR, +S1, +S2. ABSENT: tachycardia GI/Abdominal exam: PRESENT: normal bowel sounds, soft. ABSENT: rebound, rigid, tenderness Neurological exam: PRESENT: alert, awake, oriented to person, oriented to place, oriented to time, oriented to situation Psychiatric exam: PRESENT: anxious - Mild anxiety Skin exam: PRESENT: other - Damp skin. ABSENT: dry Results Laboratory Results: 08/05/19 04:46 08/06/19 05:27 08/06/19 05:27 Sodium 141.3 Potassium 4.2 Chloride 107 Carbon Dioxide 27 Anion Gap 7 BUN 12 Creatinine 0.70 Est GFR ( Amer) > 60 Glucose 87 Calcium 8.4 08/04/19 17:07 Blood Blood Culture (PCR) - Final Staphylococcus Species 08/04/19 08/04/19 08/04/19 13:25 13:25 17:07 Creatine Kinase 728 H 2326 H Troponin I 0.024 08/04/19 08/05/19 08/06/19 17:07 14:58 05:27 Creatine Kinase 5711 H 5935 H Troponin I 0.037 Impressions: Chest X-Ray 08/04/19 18:41 IMPRESSION: NO ACUTE RADIOGRAPHIC FINDING IN THE CHEST. Assessment and Plan - Diagnosis (1) Rhabdomyolysis Qualifiers: Rhabdomyolysis type: non-traumatic Qualified Code(s): M62.82 - Rhabdomyolysis Is this a current diagnosis for this admission?: Yes Plan: Secondary to drug use Creatinine kinase still not improving Give a bolus of IV normal saline and continue with continuous infusion Continue to monitor creatinine kinase and renal function (2) Intravenous drug abuse Is this a current diagnosis for this admission?: Yes Plan: Daily heroin use. Supportive care Not encephalopathic at this time (3) Heroin withdrawal Is this a current diagnosis for this admission?: Yes Plan: Showing some symptoms of mild opiate withdrawal only. We will start on clonidine 0.1 mg every 12 and increase frequency if needed while monitoring blood pressures. If significantly anxious, will start Ativan for anxiety. - Time Time Spent with patient: Less than 15 minutes
[2019-08-06] MEDS: CLONIDINE HCL 0.1 MG TABLET PO SCH ×2 (13:01→21:39)
[2019-08-06] MEDS: IBUPROFEN 400 MG TABLET PO PRN ×2 (13:02→21:39)
[2019-08-06] MEDS: ARIPIPRAZOLE 2 MG TABLET PO SCH (21:39)
[2019-08-07] MEDS: NORMAL SALINE 1000 ML 1,000 ML IV PRN ×3 (03:11→14:15)
[2019-08-07] MEDS: HEPARIN SOD (PORCINE) 5,000 UNIT/ML 1 ML VIAL SUBCUT SCH ×2 (05:17→14:14)
[2019-08-07 06:26] LABS: BLOOD UREA NITROGEN 8 mg/dL (7-20); CALCIUM 8.9 mg/dL (8.4-10.2); GLUCOSE 98 mg/dL (75-110); POTASSIUM 4.4 mmol/L (3.6-5.0)
[2019-08-07 06:32] LABS: CARBON DIOXIDE 29 mmol/L (22-30); CHLORIDE 106 mmol/L (98-107)
[2019-08-07 06:57] LABS: CREATINE KINASE 4031 U/L (55-170)
[2019-08-07 06:58] LABS: ANION GAP 5 (5-19)
[2019-08-07] MEDS ORDERED: NORMAL SALINE 1000 ML 1,000 ML IV ONE (08:27)
[2019-08-07] MEDS: BENZTROPINE MESYLATE 1 MG TABLET PO SCH (09:15)
[2019-08-07] MEDS: CLONIDINE HCL 0.1 MG TABLET PO SCH (09:16)
[2019-08-07 15:51] VITALS: BP 152/91
--- NOTE | 2019-08-07 15:53 | PDOC DISCHARGE SUMMARY ---
Impression - Admit/DC Date/PCP Admission Date/Primary Care Provider: 08/04/19 19:48 Discharge Date: 08/07/19 - Discharge Diagnosis (1) Rhabdomyolysis Is this a current diagnosis for this admission?: Yes (2) Intravenous drug abuse Is this a current diagnosis for this admission?: Yes (3) Heroin withdrawal Is this a current diagnosis for this admission?: Yes (4) Toxic encephalopathy Is this a current diagnosis for this admission?: Yes - Assessment Summary: Patient was admitted for toxic encephalopathy secondary to IV drug abuse. Patient presented altered with some spasticity noticed in the ER. He received Cogentin. Urine drug screen was positive for opiates and indeterminate for methamphetamines. Patient had acknowledged using IV heroin in the morning of presentation and thinks that he might have been laced with some other substance. Patient's toxic encephalopathy is resolved. However he was noted to have rhabdomyolysis which is initially uptrending over 5000. He received aggressive IV fluid hydration. Rhabdomyolysis likely secondary to IV drug use. With IV hydration his rhabdomyolysis has improved with CK now down to 2000 trending down. Patient had mild opiate withdrawal while here and received some clonidine but seems to be only minimal at this time and he is safe for discharge. Patient was approached by psychiatry and myself regarding pursuing substance abuse rehabilitation but he declined inpatient rehab at this time and states that he would like some time to think over whether he wants to do rehab. He has been given brochures to follow-up with a program for substance abuse rehabilitation. - Additional Information Resuscitation Status: Full Code Discharge Diet: As Tolerated Discharge Activity: Activity As Tolerated Referrals: [facility] [Outside] Home Medications: Ibuprofen [Motrin 400 mg Tablet] 400 mg PO Q8HP PRN tablet 08/07/19 History of Present Illiness History of Present Illness: CESAR LANE is a 34 year old male with past medical history of methamphetamine and heroin IV drug use. He presents in custody of [place] [employer] after found confused, disheveled and wandering around in the burgess. In the department he is hyperkinetic with mild clonus, admits to cocaine and methamphetamine. Patient is sedated and unable to provide any history. Labs reveal rhabdomyolysis. He is treated with Thorazine and referred to the hospitalist for admission. Physical Exam Vital Signs: Temp Pulse Resp BP Pulse Ox 97.8 F 70 16 147/90 H 100 01/05/20 12:50 08/07/19 12:50 08/07/19 12:50 08/07/19 12:50 08/07/19 12:50 Intake & Output 08/06/19 08/07/19 08/08/19 06:59 06:59 06:59 Intake Total 5052 6498 3360 Output Total 4979 1900 Balance 77 4598 3360 Weight 83.6 kg 83.9 kg General appearance: PRESENT: no acute distress, cooperative Neck exam: ABSENT: JVD Respiratory exam: PRESENT: clear to auscultation adrianna Cardiovascular exam: PRESENT: +S1, +S2 GI/Abdominal exam: PRESENT: normal bowel sounds Results Laboratory Results: WBC 8.7 10^3/uL (4.0-10.5) 08/05/19 04:46 RBC 4.08 10^6/uL (4.35-5.55) L 08/05/19 04:46 Hgb 11.6 g/dL (13.5-17.0) L 08/05/19 04:46 Hct 34.5 % (37.9-51.0) L 08/05/19 04:46 MCV 84 fl (80-97) 08/05/19 04:46 MCH 28.5 pg (27.0-33.4) 08/05/19 04:46 MCHC 33.7 g/dL (32.0-36.0) 08/05/19 04:46 RDW 13.9 % (11.5-14.0) 08/05/19 04:46 Plt Count 180 10^3/uL (150-450) 08/05/19 04:46 Lymph % (Auto) 23.1 % (13-45) 08/05/19 04:46 [place] % (Auto) 14.5 % (3-13) H 08/05/19 04:46 Eos % (Auto) 2.7 % (0-6) 08/05/19 04:46 Baso % (Auto) 0.4 % (0-2) 08/05/19 04:46 Absolute Neuts (auto) 5.2 10^3/uL (1.7-8.2) 08/05/19 04:46 Absolute Lymphs (auto) 2.0 10^3/uL (0.5-4.7) 08/05/19 04:46 Absolute Monos (auto) 1.3 10^3/uL (0.1-1.4) 08/05/19 04:46 Absolute Eos (auto) 0.2 10^3/uL (0.0-0.6) 08/05/19 04:46 Absolute Basos (auto) 0.0 10^3/uL (0.0-0.2) 08/05/19 04:46 Total Counted 100 08/04/19 17:07 Seg Neutrophils % 59.3 % (42-78) 08/05/19 04:46 Seg Neuts % (Manual) 92 % (42-78) H 08/04/19 17:07 Band Neutrophils % 2 % (3-5) L 08/04/19 17:07 Lymphocytes % (Manual) 4 % (13-45) L 08/04/19 17:07 Monocytes % (Manual) 2 % (3-13) L 08/04/19 17:07 Eosinophils % (Manual) 0 % (0-6) 08/04/19 17:07 Basophils % (Manual) 0 % (0-2) 08/04/19 17:07 Abs Neuts (Manual) 11.2 10^3/uL (1.7-8.2) H 08/04/19 17:07 Abs Lymphs (Manual) 0.5 10^3/uL (0.5-4.7) 08/04/19 17:07 Abs Monocytes (Manual) 0.2 10^3/uL (0.1-1.4) 08/04/19 17:07 Absolute Eos (Manual) 0.0 10^3/uL (0.0-0.6) 08/04/19 17:07 Abs Basophils (Manual) 0.0 10^3/uL (0.0-0.2) 08/04/19 17:07 Toxic Granulation SLIGHT 08/04/19 13:25 Toxic Vacuolation PRESENT 08/04/19 13:25 Platelet Comment ADEQUATE 08/04/19 17:07 RBC Morph Comment NORMO-CYTIC/CHROMIC 08/04/19 17:07 Sodium 139.9 mmol/L (137-145) 08/07/19 05:42 Potassium 4.4 mmol/L (3.6-5.0) 08/07/19 05:42 Chloride 106 mmol/L (98-107) 08/07/19 05:42 Carbon Dioxide 29 mmol/L (22-30) 08/07/19 05:42 Anion Gap 5 (5-19) 08/07/19 05:42 BUN 8 mg/dL (7-20) 08/07/19 05:42 Creatinine 0.66 mg/dL (0.52-1.25) 08/07/19 05:42 Est GFR ( Amer) > 60 (>60) 08/07/19 05:42 Est GFR (MDRD) Non-Af > 60 (>60) 08/07/19 05:42 Glucose 98 mg/dL (75-110) 08/07/19 05:42 POC Glucose 91 mg/dL (70-110) 08/05/19 06:25 Lactic Acid 0.7 mmol/L (0.7-2.1) 08/04/19 17:07 Calcium 8.9 mg/dL (8.4-10.2) 08/07/19 05:42 Magnesium 2.3 mg/dL (1.6-2.3) 08/04/19 13:25 Total Bilirubin 0.6 mg/dL (0.2-1.3) 08/04/19 17:07 Direct Bilirubin 0.2 mg/dL (0.0-0.4) 08/04/19 17:07 Neonat Total Bilirubin Not Reportable 08/04/19 17:07 Neonat Direct Bilirubin Not Reportable 08/04/19 17:07 Neonat Indirect Bili Not Reportable 08/04/19 17:07 AST 73 U/L (17-59) H 08/04/19 17:07 ALT 53 U/L (<50) 08/04/19 17:07 Alkaline Phosphatase 56 U/L (38-126) 08/04/19 17:07 Creatine Kinase 2522 U/L (55-170) H 08/07/19 15:03 Troponin I 0.037 ng/mL 08/04/19 17:07 Total Protein 6.5 g/dL (6.3-8.2) 08/04/19 17:07 Albumin 3.7 g/dL (3.5-5.0) 08/04/19 17:07 Urine Color YELLOW 08/04/19 15:00 Urine Appearance SLIGHTLY-CLOUDY 08/04/19 15:00 Urine pH 6.0 (5.0-9.0) 08/04/19 15:00 Ur Specific [place] 1.017 08/04/19 15:00 Urine Protein 100 mg/dL (NEGATIVE) H 08/04/19 15:00 Urine Glucose (UA) NEGATIVE mg/dL (NEGATIVE) 08/04/19 15:00 Urine Ketones TRACE mg/dL (NEGATIVE) H 08/04/19 15:00 Urine Blood NEGATIVE (NEGATIVE) 08/04/19 15:00 Urine Nitrite NEGATIVE (NEGATIVE) 08/04/19 15:00 Urine Bilirubin NEGATIVE (NEGATIVE) 08/04/19 15:00 Urine Urobilinogen NEGATIVE mg/dL (<2.0) 08/04/19 15:00 Ur Leukocyte Esterase NEGATIVE (NEGATIVE) 08/04/19 15:00 Urine WBC (Auto) 3 /HPF 08/04/19 15:00 Urine RBC (Auto) 1 /HPF 08/04/19 15:00 U Hyaline Cast (Auto) 5 /LPF 08/04/19 15:00 Urine Bacteria (Auto) TRACE /HPF 08/04/19 15:00 Squamous Epi Cells Auto <1 /HPF 08/04/19 15:00 Urine Mucus (Auto) RARE /LPF 08/04/19 15:00 Urine Ascorbic Acid NEGATIVE (NEGATIVE) 08/04/19 15:00 Salicylates < 1.0 mg/dL (2.0-20.0) L 08/04/19 13:25 Urine Opiates Screen UNCONFIRMED POSITIVE 08/04/19 15:00 Urine Methadone Screen NEGATIVE 08/04/19 15:00 Acetaminophen < 10 ug/mL (10-30) L 08/04/19 13:25 Ur Barbiturates Screen NEGATIVE 08/04/19 15:00 Ur Phencyclidine Scrn NEGATIVE 08/04/19 15:00 Ur Amphetamines Screen 08/04/19 15:00 U Benzodiazepines Scrn NEGATIVE 08/04/19 15:00 Urine Cocaine Screen NEGATIVE 08/04/19 15:00 U Marijuana (THC) Screen NEGATIVE 08/04/19 15:00 Serum Alcohol < 10 mg/dL (NONE DETECTED) 08/04/19 13:25 08/04/19 08/04/19 13:25 17:07 Troponin I 0.024 0.037 Impressions: Chest X-Ray 08/04/19 12:46 IMPRESSION: NO SIGNIFICANT RADIOGRAPHIC FINDING IN THE CHEST. Chest X-Ray 08/04/19 18:41 IMPRESSION: NO ACUTE RADIOGRAPHIC FINDING IN THE CHEST. Plan Time Spent: Less than 30 Minutes Stroke Is this a Stroke Patient?: No Acute Heart Failure - Is this a Heart Failure Patient?: No
[2019-08-09 08:37] LABS: CK MACRO TYPE 1 0 % (Not Observ); CK MACRO TYPE 2 0 % (Not Observ); CK-MB 0 % (0-3); CK-MM 100 % (97-100); CREATINE KINASE TOTAL 107 U/L (24-204)
[2019-08-09 09:22] LABS: CK-BB 0 % (0)
== END 2019-08-07 16:15 | disposition home or self-care (01) | DRG 917 ==
LOC: ER 12:03 → EH 19:48 → 4S 08-05 00:50
PROVIDERS: ADMIT Internal Medicine; ATTEND Internal Medicine
DX: T40.1X2A Poisoning by heroin, intentional self-harm, initial encounter (principal); G92 Toxic encephalopathy; M62.82 Rhabdomyolysis; F19.239 Other psychoactive substance dependence with withdrawal, unspecified; F11.229 Opioid dependence with intoxication, unspecified; D72.825 Bandemia; E86.0 Dehydration; Z59.0 Homelessness; Y92.9 Unspecified place or not applicable; Z88.0 Allergy status to penicillin
CPT/HCPCS: 36415; 71045; 80048; 80053; 80307; 81001; 82550; 82552; 82962; 83605; 83735; 84484; 85025; 87040; 87070; 87077; 87150; 87186; 93005; 93010; 96360; 96361; 96372; 99285; J0515; J1644; J3230; J3490; J7030; J7121

== ENCOUNTER 2020-01-21 04:07 | Emergency (ER) | payer SELFPAY ==
--- NOTE | 2020-01-21 05:30 | ER Document Report ---
Entered by ASIM SNOWDEN SCRIBE 01/21/20 0415 Acting as scribe for:PATRICK NOLASCO IV, MD ED Substance Abuse / Acc. OD - General Stated Complaint: OVERDOSE Mode of Arrival: Medic Information source: Emergency Med Personnel Notes: This 35 year old male patient brought in by EMS presents to the ED today with complaints of possible overdose that occurred just prior to arrival. EMS reports that the patient was found in the bathroom of a convenience store diaphoretic and twitching. Per EMS, HARRISON administered 4 mg Narcan IN prior to their arrival. EMS states that the patient admitted to heroin use around 2230 and complains of generalized body aches. EMS denies any past medical history except IV drug abuse. TRAVEL OUTSIDE OF THE [place] IN LAST 30 DAYS: No - Related Data Allergies/Adverse Reactions: amoxicillin [Amoxicillin] Allergy (Severe, Verified 04/04/16 09:00) hives, n and v Penicillins Allergy (Verified 04/04/16 09:00) hives, n and v Past Medical History - General Information source: Emergency Med Personnel, [facility] Records - Social History Smoking Status: Unknown if Ever Smoked Cigarette use (# per day): No Chew tobacco use (# tins/day): No Smoking Education Provided: No Drug Abuse: Heroin, Methamphetamine Family History: Reviewed & Not Pertinent Patient has suicidal ideation: No Patient has homicidal ideation: No Musculoskeletal Medical History: Reports Hx Musculoskeletal Trauma Traumatic Medical History: Reports: Hx Fractures Past Surgical History: Reports: Hx Orthopedic Surgery - Immunizations Immunizations up to date: No Hx Diphtheria, Pertussis, Tetanus Vaccination: Yes - 02-15-13 Review of Systems - Review of Systems Constitutional: See HPI, Other - Overdose EENT: No symptoms reported Cardiovascular: No symptoms reported Respiratory: No symptoms reported Gastrointestinal: No symptoms reported Genitourinary: No symptoms reported Male Genitourinary: No symptoms reported Musculoskeletal: See HPI, Muscle pain Skin: No symptoms reported Hematologic/Lymphatic: No symptoms reported Neurological/Psychological: No symptoms reported -: Yes All other systems reviewed and negative Physical Exam - Vital signs Vitals: Temp 99.1 F 01/21/20 04:12 - General General appearance: Alert In distress: None - HEENT Head: Normocephalic Eyes: Normal Pupils: Pinpoint - Respiratory Respiratory status: No respiratory distress Chest status: Nontender Breath sounds: Normal Chest palpation: Normal - Cardiovascular Rhythm: Regular, Tachycardia Heart sounds: Normal auscultation Murmur: No Friction rub: No Gallop: None auscultated - Abdominal Inspection: Normal Distension: No distension Bowel sounds: Normal Tenderness: Nontender - Abdomen soft Organomegaly: No organomegaly - Back Back: Normal, Nontender - Extremities General upper extremity: Normal inspection General lower extremity: Normal inspection - Neurological Neuro grossly intact: Yes [place] Coma Scale Eye Opening: Spontaneous [place] Coma Scale Verbal: Oriented [place] Coma Scale Motor: Obeys Commands [place] Coma Scale Total: 15 - Psychological Associated symptoms: Normal affect, Normal mood - Skin Skin Temperature: Warm Skin Moisture: Dry Skin Color: Normal Course - Re-evaluation Re-evalutation: 01/21/20 06:13 Patient's heart rate is currently 77, O2 sats 97% on room air. Patient has a GCS of 15 and is alert and oriented to person place and time. Patient's mother is working on getting the patient a ride home. Results of ED MSE discussed with patient. All questions were answered prior to discharge. Emergency signs and symptoms, reasons to return to the emergency department discussed with patient. - Vital Signs Vital signs: Temp Pulse Resp BP Pulse Ox 99.1 F 98 26 H 132/70 H 98 01/21/20 04:17 01/21/20 04:17 01/21/20 04:17 01/21/20 04:17 01/21/20 04:17 - Laboratory Result Diagrams: 01/21/20 04:19 01/21/20 04:19 Laboratory results interpreted by me: 01/21/20 01/21/20 04:19 04:19 WBC 15.2 H Hgb 12.0 L Hct 36.8 L MCH 26.7 L Lymph % (Auto) 10.8 L Absolute Neuts (auto) 11.8 H Absolute Monos (auto) 1.5 H BUN 22 H Creatinine 2.11 H Est GFR ( Amer) 43 L Est GFR (MDRD) Non-Af 36 L - EKG Interpretation by Me Additional EKG results interpreted by me: 01/21/20 04:59 EKG obtained on 01/21/2020 at 0412 hrs. was interpreted by this MD. Findings: Normal sinus rhythm, rate 93, normal axis, P waves proceed QRS complexes, QRS complexes appear narrow, there are no obvious patterns of ST segment elevation or depression present to suggest acute myocardial ischemia or infarction. Impression: Normal sinus rhythm with nonspecific ST segments. Discharge - Discharge Clinical Impression: Accidental heroin overdose Qualifiers: Encounter type: initial encounter Qualified Code(s): T40.1X1A - Poisoning by heroin, accidental (unintentional), initial encounter Condition: Stable Disposition: HOME, SELF-CARE Additional Instructions: Return to the Emergency Department without delay if any worse. Home Care Following a Drug Overdose The doctor feels it's safe for you to go home. You will need to be observed. If charcoal and a laxative was given to you, expect some loose black stools soon. Take no medications unless approved by a physician, including alcohol. If drowsy, lie on your stomach or side for sleeping to avoid aspiration if vomiting occurs. Take only liquids by mouth until there is no more nausea. FOR THE OBSERVER: Observe the patient for the next 24 hours and call or go to the hospital if any of the following are noted: prolonged or repeated vomiting, difficulty in arousing, convulsions (seizures or fits), fever, persistent cough, breathing that is too slow or too rapid, or confused or bizarre behavior. If a counselling visit has been arranged, make sure the patient attends. Call the physician or poison control if you have questions. HOME CARE INSTRUCTIONS & INFORMATION: Thank you for choosing us for your medical needs. We hope you're satisfied with the care you received. After you leave, you must properly care for your problem and, at the same time, observe its progress. Any condition can change. Some illnesses can change rapidly over hours or days. If your condition worsens, return to the Emergency Department or see your physician promptly. ABOUT YOUR X-RAYS AND EKG'S: If you had an EKG or X-rays taken, they have been read by the Emergency Physician. The X-rays and EKG's will also be read by a Radiologist or Hand Potter within 24 hours. If discrepancies are noted, you will be notified by telephone. Please be certain the ED has a correct telephone number & address where you can be reached. Also, realize that some fractures or abnormalities do not show up on initial X-rays. If your symptoms continue, see your physician. ABOUT YOUR LABORATORY TEST: If you had laboratory tests, the results have been reviewed by the Emergency Physician. Some test results (for example cultures) may not be available for several days. You will be contacted if any test result shows you need additional treatment. Please be certain the ED has a correct telephone number and address where you can be reached. ABOUT YOUR MEDICATIONS: You will receive instructions on how to take your medicine on the prescription label you receive. Additional information may be provided by the Pharmacy. If you have questions afterwards, call the ED for clarification or further instructions. Some prescribed medications may cause drowsiness. Do not perform tasks such as driving a car or operating machinery without consulting your Pharmacist. If you feel you need a refill of pain medication, your condition will need re-evaluation. Please do not call for a refill of any medication. ABOUT YOUR SIGNATURE: Signature of this document acknowledges to followin. Understanding that you received emergency treatment and that you may be released before al medical problems are known or treated. Please be certain the ED has a correct phone number & address where you can be reached. 2. Acknowledgement that you will arrange for follow-up care as recommended. 3. Authorization for the Emergency Physician to provide information to your follow-up Physician in order to maximize your care. AT ANY TIME, IF YOUR SYMPTOMS CHANGE SIGNIFICANTLY OR WORSEN OR YOU DEVELOP NEW SYMPTOMS, RETURN TO THE EMERGENCY DEPARTMENT IMMEDIATELY FOR RE-EVALUATION. OUR GOAL IS TO PROVIDE EXCELLENT MEDICAL CARE! WE HOPE THAT WE HAVE MET YOUR EXPECTATIONS DURING YOUR EMERGENCY DEPARTMENT VISIT AND THAT YOU FEEL YOU HAVE RECEIVED EXCELLENT CARE! Referrals: LIZETH FORBES MD [HONORARY] - Follow up as needed I personally performed the services described in the documentation, reviewed and edited the documentation which was dictated to the scribe in my presence, and it accurately records my words and actions.
[2020-01-21 05:42] LABS: ABSOLUTE BASOPHILS # (AUTO) 0.1 10^3/uL (0.0-0.2); ABSOLUTE EOSINOPHILS # (AUTO) 0.1 10^3/uL (0.0-0.6); ABSOLUTE LYMPHOCYTES (AUTO) 1.6 10^3/uL (0.5-4.7); ABSOLUTE MONOCYTES (AUTO) 1.5 10^3/uL (0.1-1.4); ABSOLUTE NEUT (AUTO) 11.8 10^3/uL (1.7-8.2); BASOPHILS % (AUTO) 0.5 % (0-2); EOSINOPHILS % (AUTO) 0.8 % (0-6); HEMATOCRIT 36.8 % (37.9-51.0); LYMPHOCYTES % (AUTO) 10.8 % (13-45); MEAN CORPUSCULAR HEMOGLOBIN 26.7 pg (27.0-33.4); MEAN CORPUSCULAR HGB CONC 32.7 g/dL (32.0-36.0); MEAN CORPUSCULAR VOLUME 82 fl (80-97); MONOCYTES % (AUTO) 9.9 % (3-13); PLATELET COUNT 265 10^3/uL (150-450); RED BLOOD COUNT 4.51 10^6/uL (4.35-5.55); RED CELL DISTRIBUTION WIDTH 13.9 % (11.5-14.0); TOTAL CELLS COUNTED % (AUTO) 100 %; WHITE BLOOD COUNT 15.2 10^3/uL (4.0-10.5)
[2020-01-21 05:54] LABS: ALBUMIN 4.1 g/dL (3.5-5.0); ALKALINE PHOSPHATASE 74 U/L (38-126); ANION GAP 11 (5-19); ASPARTATE AMINO TRANSFERASE 52 U/L (17-59); BILIRUBIN,TOTAL 1.3 mg/dL (0.2-1.3); BLOOD UREA NITROGEN 22 mg/dL (7-20); CARBON DIOXIDE 23 mmol/L (22-30); CHLORIDE 105 mmol/L (98-107); GLUCOSE 101 mg/dL (75-110); POTASSIUM 3.6 mmol/L (3.6-5.0); TOTAL PROTEIN 7.2 g/dL (6.3-8.2)
[2020-01-21 05:57] LABS: ALCOHOL < 10 mg/dL (NONE DETECTED)
[2020-01-21 06:32] VITALS: BP 118/62
--- NOTE | 2020-01-21 11:19 | EKG REPORT ---
SEVERITY:- OTHERWISE NORMAL ECG - SINUS RHYTHM BORDERLINE RIGHT AXIS DEVIATION : Confirmed by: Eliot Dukes MD 21-Jan-2020 11:19:27
== END 2020-01-21 06:32 | disposition home or self-care (01) ==
LOC: ER 04:07
DX: T40.1X1A Poisoning by heroin, accidental (unintentional), initial encounter (principal); F19.10 Other psychoactive substance abuse, uncomplicated; Z88.0 Allergy status to penicillin; Z88.1 Allergy status to other antibiotic agents
CPT/HCPCS: 36415; 80053; 80307; 85025; 93005; 93010; 99284